=== PATIENT | male | born 1965 | race African-American/Black ===

== ENCOUNTER 2022-04-14 11:47 | Emergency (ER) | payer OTHER ==
[~2022-04-14] VITALS: Ht 182.9 cm; Wt 109.5 kg
[2022-04-14] MEDS ORDERED: ONDANSETRON HCL INJ 2MG/ML 2ML 2 MG/ML VIAL IV STA (12:25)
[2022-04-14] MEDS ORDERED: KETOROLAC TROMETHAMINE 30 MG/ML VIAL IV STA (12:25)
[2022-04-14] MEDS ORDERED: SODIUM CHLORIDE 0.9% 1000ML 1,000 ML IV STA ×2 (12:25→12:27)
[2022-04-14] MEDS ORDERED: IOPAMIDOL 370 MG/ML 100 ML INFUS..BTL INJ ONE (12:44)
[2022-04-14] MEDS ORDERED: KETOROLAC TROMETHAMINE 30 MG/ML VIAL ONE (12:45)
[2022-04-14] MEDS ORDERED: FLOMAX0.4 MG PO (14:09)
[2022-04-14] MEDS ORDERED: ONDANSETRON ODT4 MG PO (14:09)
[2022-04-14] MEDS ORDERED: KETOROLAC TROME10 MG PO (14:09)
== END 2022-04-14 15:19 | disposition home or self-care (01) ==
LOC: FSED 11:56
DX: R10.31 Right lower quadrant pain (principal); N13.2 Hydronephrosis with renal and ureteral calculous obstruction; F17.210 Nicotine dependence, cigarettes, uncomplicated
CPT/HCPCS: 74177; 80048; 80076; 81003; 85025; 96374; 96375; 99284; J1885; J2405; J7030; Q9967